=== PATIENT | male | born 1990 | race Two or more races ===

== ENCOUNTER 2017-01-07 08:38 | Emergency (ER) | payer OTHER ==
[2017-01-07] MEDS ORDERED: HYDROcod/ACETAM 5/325 MG TABLET PO STA (09:24)
[2017-01-07] MEDS ORDERED: AMOXICILLIN 250 MG CAPSULE PO STA (09:24)
[2017-01-07] MEDS ORDERED: DEXAMETHASONE 10 MG/ML VIAL PO STA (09:24)
[2017-01-07] MEDS ORDERED: HYDROcod/ACETAM 5/325 MG TABLET ONE (09:27)
[2017-01-07] MEDS ORDERED: AMOXICILLIN 250 MG CAPSULE PO ONE (09:27)
[2017-01-07] MEDS ORDERED: CHERRY SYRUP 10 ML UDC PO ONE (09:27)
[2017-01-07] MEDS ORDERED: DEXAMETHASONE 10 MG/ML VIAL ONE (09:27)
== END 2017-01-07 09:33 | disposition home or self-care (01) ==
DX: J40 Bronchitis, not specified as acute or chronic (principal); R11.0 Nausea; R19.7 Diarrhea, unspecified; F17.200 Nicotine dependence, unspecified, uncomplicated
CPT/HCPCS: 99283; A9270

== ENCOUNTER 2017-02-06 14:22 | Emergency (ER) | payer OTHER ==
[2017-02-06] MEDS ORDERED: DEXAMETHASONE 10 MG/ML VIAL PO STA (14:37)
[2017-02-06] MEDS ORDERED: CHERRY SYRUP 10 ML UDC PO ONE (14:42)
[2017-02-06] MEDS ORDERED: DEXAMETHASONE 10 MG/ML VIAL ONE (14:42)
== END 2017-02-06 15:08 | disposition home or self-care (01) ==
DX: M70.51 Other bursitis of knee, right knee (principal); Y93.H2 Activity, gardening and landscaping; Y99.0 Civilian activity done for income or pay; F17.200 Nicotine dependence, unspecified, uncomplicated
CPT/HCPCS: 99283; A9270